=== PATIENT | male | born 1960 | race American Indian/Alaskan Native ===

== ENCOUNTER 2018-12-08 05:47 | Inpatient (IN) | payer OTHER ==
--- NOTE | 2018-12-08 05:50 | C.PDOC ---
History Of Present Illness Patient presents with worsening shortness of breath for over 3 days. 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 Received pt diaphoretic,sob, no chest pain. Speaking in 1-2 word responses. Strong scent of cigarettes on breath. No f/c/n/v Time Seen by Provider: 12/08/18 05:49 History Per: EMS History/Exam Limitations: clinical condition Onset/Duration Of Symptoms: Days (3) Current Symptoms Are (Timing): Worse Initiating Event: Other Exacerbating Factor(s): Laying Flat Current Respiratory Medications: See Home Med List Severity: Severe Pain Scale Rating Of: 9 Associated Symptoms: Sweating. denies: Fever, Chills Reports Recently: Treated By A Physician Recent travel outside of the [place]: No Additional History Per: EMS Past Medical History Reviewed: Historical Data, Nursing Documentation, Vital Signs Family History: States: No Known Family Hx Review Of Systems Constitutional: Negative for: Fever, Chills Eyes: Negative for: Redness ENT: Negative for: Throat Pain Cardiovascular: Negative for: Chest Pain Respiratory: Positive for: Shortness of Breath Gastrointestinal: Negative for: Nausea, Vomiting, Abdominal Pain Genitourinary: Negative for: Dysuria Musculoskeletal: Negative for: Back Pain Skin: Negative for: Rash Neurological: Negative for: Weakness Psych: Negative for: Anxiety Physical Exam - Physical Exam Appears: In Acute Distress Skin: Diaphoretic Head: Normacephalic Eye(s): bilateral: Normal Inspection Oral Mucosa: Moist Neck: Supple Chest: Symmetrical, Other (pacer/defib left chest wall) Cardiovascular: Rhythm Regular Respiratory: Decreased Breath Sounds, Rales (few at bases), Rhonchi, No Wheezing Gastrointestinal/Abdominal: Soft, No Tenderness, No Distention Back: No CVA Tenderness Extremity: Normal ROM Extremity: Bilateral: Atraumatic Pulses: Left Dorsalis Pedis: Normal, Right Dorsalis Pedis: Normal Neurological/Psych: Oriented x3 Gait: Unable To Assess ED Course And Treatment - Laboratory Results Result Diagrams: 12/08/18 06:09 12/08/18 06:09 ECG: Interpreted By Me, Viewed By Me ECG Rhythm: Sinus Rhythm (100), R BBB, Nonspecific Changes O2 Sat by Pulse Oximetry: 100 Pulse Ox Interpretation: Normal - Radiology CXR: Interpreted by Me, Viewed By Me CXR Interpretation: Yes: Cardiomegaly, Other (acute pulm edema, pacer left ch est). No: Infiltrates, Fracture Progress Note: 6:30 decreased o2 to 70%. still saturqting to 98% Critical Care Time - Critical Care Note Total Time (in mins): 30 Documented critical care: time excludes all time spent performing seperately billable procedures. Disposition Discussed With Dr.: David Nevarez Comment: accepted the pt on his service and took over the care at 6:45 AM Doctor Will See Patient In The: Hospital Counseled Patient/Family Regarding: Studies Performed, Diagnosis - Disposition Disposition: HOSPITALIZED Disposition Time: 05:50 Condition: CRITICAL - Clinical Impression Clinical Impression: Acute pulmonary edema, Respiratory distress Decision To Admit - Pt Status Changed To: Hospital Disposition Of: Inpatient - Admit Certification Admit to Inpatient:: After my assessment, the patient will require hospita lization for at least two midnights. This is because of the severity of symptoms shown, intensity of services needed, and/or the medical risk in this patient being treated as an outpatient. - InPatient: Physician Admission Certification: I certify that this patient requires 2 or more midnights of care for the following reason:: After my assessment, the patie nt will require hospitalization for at least two midnights. This is because of the severity of symptoms shown, intensity of services needed, and/or the medical risk in this patient being treated as an outpatient. - . Bed Request Type: Telemetry Admitting Physician: David Nevarez Patient Diagnosis: Acute pulmonary edema, Respiratory distress
[2018-12-08 05:56] VITALS: BMI 22.3
[2018-12-08] MEDS ORDERED: Nitroglycerin 2% Ointment Foilpak UD TOP STA (06:11)
[2018-12-08 06:12] LABS: BASO % 0.5 % (0.0-2.0); EOS # 0.4 K/uL (0.0-0.7); EOS % 6.2 % (0.0-4.0); HEMOGLOBIN 14.6 g/dL (12.0-18.0); LYMPH # 3.3 K/uL (1.0-4.3); LYMPH % 46.9 % (20.0-40.0); MEAN CELL VOLUME 98.3 fL (80.0-94.0); MEAN CORPUSCULAR HEMOGLOBIN 30.9 pg (27.0-31.0); MEAN CORPUSCULAR HGB CONC 31.4 g/dL (33.0-37.0); MEAN PLATELET VOLUME 10.5 fL (7.2-11.7); MONO # 0.4 K/uL (0.0-0.8); MONO % 5.1 % (0.0-10.0); NEUT # 2.9 K/uL (1.8-7.0); NEUT % 41.3 % (50.0-75.0); NRBC % 0.1 % (0.0-2.0); RBC 4.74 Mil/uL (4.40-5.90); RED CELL DISTRIBUTION WIDTH 15.3 % (11.5-14.5)
[2018-12-08 06:16] LABS: ABG ALLEN TEST POS; ARTERIAL BLOOD GAS HCO3 13.9 mmol/L (21-28); ARTERIAL BLOOD GAS O2 SAT 100.1 % (95-98); ARTERIAL BLOOD GAS PCO2 44 mm/Hg (35-45); ARTERIAL BLOOD GAS PH 7.13 (7.35-7.45); ARTERIAL BLOOD GAS PO2 188 mm/Hg (80-100)
[2018-12-08 06:21] LABS: INR 1.3; PROTHROMBIN TIME 13.8 SECONDS (9.7-12.2)
[2018-12-08] MEDS ORDERED: Nitroglycerin 2% Ointment Foilpak UD TOP ONE (06:24)
[2018-12-08 06:25] LABS: ALB/GLOB RATIO 1.3 (1.0-2.1); ALBUMIN 3.9 g/dL (3.5-5.0); BLOOD UREA NITROGEN 15 mg/dL (9-20); CALCIUM 8.8 mg/dl (8.6-10.4); GFR NON-AFRICAN AMERICAN 56
[2018-12-08 06:37] LABS: B-TYPE NATRIURETIC PEPTIDE 5240 pg/mL (0-900)
[2018-12-08 06:40] LABS: ALT/SGPT 56 U/L (21-72); AST/SGOT 64 U/L (17-59)
[2018-12-08 06:58] LABS: SQUAMOUS EPITHIAL < 1 /hpf (0-5); URINE BILIRUBIN NEGATIVE (NEGATIVE); URINE BLOOD NEGATIVE (NEGATIVE); URINE CLARITY Clear (Clear); URINE COLOR Straw (YELLOW); URINE GLUCOSE (UA) NORMAL (Normal); URINE LEUKOCYTE ESTERASE NEG Leu/uL (Negative); URINE PROTEIN 1+ mg/dL (NEGATIVE); URINE UROBILINOGEN NORMAL mg/dL (0.2-1.0)
[2018-12-08] MEDS ORDERED: Albuterol-Ipratrop 3 mg / 0.5 (3 ml) UD INH PRN (07:45)
--- NOTE | 2018-12-08 07:53 | CP.PCM.HP ---
History of Present Illness - History of Present Illness History of Present Illness: Chief complaint: Shortness of breath HPI: Patient is a 58-year-old male with a chronic history of heart failure, hypertension, hypercholesterolemia, CAD and stent placement multiple times in the past and also has AICD came to the emergency room with a sudden onset of shortness of breath. 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 Patient was given aspirin on his way, and he was also having diaphoretic associate with the shortness of breath. He did not have any chills. He denies any chest pain. He was not able to complete a sentence. In the emergency room patient was initially evaluated, placed on the BiPAP. Initial blood gas analysis showing evidence of severe acidotic secondary to possibly worsening respiratory distress. Patient was recently hospitalized 2 weeks ago at [facility] with a similar problem. 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 Past medical history: Hypertension, hypercholesterolemia, CAD, congestive heart failure Surgical history: AICD placement Allergies no known drug allergy Personal history: Patient is a known alcoholic. But he smokes almost half pack per day patient has a strong history of smoking in the past. He has a diet noncompliance. Family history significant for heart disease as well as hypertension. Review of system: He denies any headache denies any visual symptom No chest pain but complaining of cough shortness of breath. Severe worsening. Unable to breathe. Patient also feeling minimal cough. He denies any fever chills. No GI symptoms. No leg swelling On examination: Currently vital signs are stable. Blood pressure slightly on the low side. Oxygen saturation is 100%. Chest bilateral good air entry No wheezing or rales noted Patient has a pacemaker and AICD on the left side Abdomen soft nontender. No pedal edema Patient's labs reviewed Elevated proBNP, normal cardiac troponin level noted. Chest x-ray showing bilateral CHF pattern Assessment and recommendation: 58-year-old male now admitted to the hospital with a possible acute systolic heart failure decompensated. Improving with the BiPAP as well as Lasix. We will continue the current treatment. Continue the BiPAP. Oxygen as tolerated. Continue the Lasix. Cardiology evaluation. Evaluation by cardiac enzymes monitoring. DVT prophylaxis and will follow the patient Present on Admission - Present on Admission Any Indicators Present on Admission: No History of DVT/PE: No History of Uncontrolled Diabetes: No Urinary Catheter: No Decubitus Ulcer Present: No Past Patient History - Infectious Disease Hx of Infectious Diseases: None - Past Social History Smoking Status: Heavy Smoker > 10 Cigarettes Daily - CARDIAC Hx Congestive Heart Failure: Yes Hx Hypercholesterolemia: Yes Hx Hypertension: Yes - PSYCHIATRIC Hx Substance Use: No - SURGICAL HISTORY Hx Surgeries: Yes Other/Comment: AICD/Defibrillator - ANESTHESIA Hx Anesthesia: No Meds Allergies/Adverse Reactions: Allergies Allergy/AdvReac Type Severity Reaction Status Date / Time No Known Allergies Allergy Verified 12/08/18 05:55 Results - Vital Signs Recent Vital Signs: Last Vital Signs Temp 97.4 F L 12/08/18 06:04 Pulse 72 12/08/18 07:32 Resp 18 12/08/18 07:32 BP 104/77 12/08/18 07:32 Pulse Ox 100 12/08/18 07:32 - Labs Result Diagrams: 12/08/18 06:09 12/08/18 06:09 Labs: Laboratory Results - last 24 hr 12/08/18 12/08/18 12/08/18 05:55 06:09 06:09 WBC 7.0 RBC 4.74 Hgb 14.6 Hct 46.6 MCV 98.3 H MCH 30.9 MCHC 31.4 L RDW 15.3 H Plt Count 153 MPV 10.5 Neut % (Auto) 41.3 L Lymph % (Auto) 46.9 H Amelia % (Auto) 5.1 Eos % (Auto) 6.2 H Baso % (Auto) 0.5 Neut # (Auto) 2.9 Lymph # (Auto) 3.3 Amelia # (Auto) 0.4 Eos # (Auto) 0.4 Baso # (Auto) 0.0 PT 13.8 H INR 1.3 APTT 30 Puncture Site pCO2 pO2 HCO3 ABG pH ABG Total CO2 ABG O2 Saturation ABG Base Excess Juilen Test ABG Potassium A-a O2 Difference Respiratory Index Glucose Lactate Vent Mode FiO2 Inspiratory BiPAP Expiratory BiPAP Crit Value Called To Crit Value Called By Crit Value Read Back Blood Gas Notified Time Sodium Potassium Chloride Carbon Dioxide Anion Gap BUN Creatinine Est GFR ( Amer) Est GFR (Non-Af Amer) POC Glucose (mg/dL) 206 H Random Glucose Calcium Magnesium Total Bilirubin AST ALT Alkaline Phosphatase Troponin I NT-Pro-B Natriuret Pep Total Protein Albumin Globulin Albumin/Globulin Ratio Arterial Blood Potassium Urine Color Urine Clarity Urine pH Ur Specific [place] Urine Protein Urine Glucose (UA) Urine Ketones Urine Blood Urine Nitrate Urine Bilirubin Urine Urobilinogen Ur Leukocyte Esterase Urine WBC (Auto) Urine RBC (Auto) Ur Squamous Epith Cells Hyaline Casts 12/08/18 12/08/18 12/08/18 06:09 06:10 06:50 WBC RBC Hgb Hct MCV MCH MCHC RDW Plt Count MPV Neut % (Auto) Lymph % (Auto) [place] % (Auto) Eos % (Auto) Baso % (Auto) Neut # (Auto) Lymph # (Auto) [place] # (Auto) Eos # (Auto) Baso # (Auto) PT INR APTT Puncture Site Rr pCO2 44 pO2 188 H HCO3 13.9 L ABG pH 7.13 L* ABG Total CO2 16.0 L ABG O2 Saturation 100.1 H ABG Base Excess -14.2 L Julien Test Pos ABG Potassium 3.9 A-a O2 Difference 470.0 Respiratory Index 2.5 Glucose 231 H Lactate 6.3 H* Vent Mode Bipap FiO2 100.0 Inspiratory BiPAP 12 Expiratory BiPAP 6 Crit Value Called To Dr carvajal(erdr Crit Value Called By Dominguez ji/rt Crit Value Read Back Y Blood Gas Notified Time 620 Sodium 138 135.0 Potassium 4.5 Chloride 105 105.0 Carbon Dioxide 21 L Anion Gap 16 BUN 15 Creatinine 1.3 Est GFR ( Amer) > 60 Est GFR (Non-Af Amer) 56 POC Glucose (mg/dL) Random Glucose 181 H Calcium 8.8 Magnesium 2.2 Total Bilirubin 1.1 AST 64 H ALT 56 Alkaline Phosphatase 71 Troponin I < 0.0120 NT-Pro-B Natriuret Pep 5240 H Total Protein 6.9 Albumin 3.9 Globulin 3.0 Albumin/Globulin Ratio 1.3 Arterial Blood Potassium 3.9 Urine Color Straw Urine Clarity Clear Urine pH 5.0 Ur Specific [place] 1.005 Urine Protein 1+ H Urine Glucose (UA) Normal Urine Ketones Negative Urine Blood Negative Urine Nitrate Negative Urine Bilirubin Negative Urine Urobilinogen Normal Ur Leukocyte Esterase Neg Urine WBC (Auto) 1 Urine RBC (Auto) < 1 Ur Squamous Epith Cells < 1 Hyaline Casts 3-5 H
--- NOTE | 2018-12-08 07:55 | RAD ---
Date of service: 12/08/2018 PROCEDURE: CHEST RADIOGRAPH, 1 VIEW HISTORY: SOB COMPARISON: None available. FINDINGS: LUNGS: Pulmonary venous congestion suggested. The greater coalescence in the right mid lung zone. PLEURA: No pneumothorax or pleural fluid seen. CARDIOVASCULAR: There is presence of aortic atherosclerotic calcification on x-ray. Mild cardiomegaly. Left pacemaker battery pack multiple pacing leads present-correlate clinically OSSEOUS STRUCTURES: No significant abnormalities. VISUALIZED UPPER ABDOMEN: Normal. OTHER FINDINGS: None. IMPRESSION: Mild cardiomegaly and pulmonary venous congestion-pulmonary edema suggested Pacemaker with multiple leads in place. Correlate clinically
[2018-12-08 08:52] LABS: ABG ALLEN TEST PO; ARTERIAL BLOOD GAS HCO3 24.8 mmol/L (21-28); ARTERIAL BLOOD GAS O2 SAT 94.3 % (95-98); ARTERIAL BLOOD GAS PCO2 39 mm/Hg (35-45); ARTERIAL BLOOD GAS PH 7.41 (7.35-7.45); ARTERIAL BLOOD GAS PO2 60 mm/Hg (80-100); ARTERIAL BLOOD GAS TCO2 25.9 mmol/L (22-28)
[2018-12-08 12:10] LABS: CK-MB 0.87 ng/mL (0.0-3.38); TROPONIN I 0.021 ng/mL (0.00-0.120)
--- NOTE | 2018-12-08 14:41 | CP.PCM.CON ---
History of Present Illness - History of Present Illness History of Present Illness: The patient is a 58 yo man with history of CAD status post PCI of RCA in the remote past, nonischemic cardiomyopathy with EF of 20-25%, status post [place] single-chamber AICD implant in July of 2008 for primary prevention, lead fracture requiring capping of the old lead and implant of new defibrillator lead from right cephalic vein which was tunneled to the left side in August of 2014. Patient had frequent PVCs for which he underwent ablation in 2015. ICD generator was changed in February of 2017. Pt is followed by Karina Perez. he was recently admitted to [facility] obs unit with chf, treated and released. Pt has had compliance issues in the past, and has still smoked. Now readmitted for dyspnea, and cxr is c/w chf. The nurse called a reported an 11 beat run of VTach today Review of Systems - Review of Systems All systems: reviewed and no additional remarkable complaints except (as above.) Past Patient History - Infectious Disease Hx of Infectious Diseases: None - Past Medical History & Family History Past Medical History?: Yes - Past Social History Smoking Status: Current Some Days Smoker - CARDIAC Hx Congestive Heart Failure: Yes Hx Hypercholesterolemia: Yes Hx Hypertension: Yes - MUSCULOSKELETAL/RHEUMATOLOGICAL Hx Falls: No - PSYCHIATRIC Hx Substance Use: No - SURGICAL HISTORY Hx Surgeries: Yes Other/Comment: AICD/Defibrillator - ANESTHESIA Hx Anesthesia: No Meds Allergies/Adverse Reactions: Allergies Allergy/AdvReac Type Severity Reaction Status Date / Time No Known Allergies Allergy Verified 12/08/18 05:55 - Medications Medications: Current Medications Albuterol/Ipratropium (Duoneb 3 Mg/0.5 Mg (3 Ml) Ud) 3 ml INH RQ6 PRN PRN Reason: Shortness of Breath Aspirin (Aspirin Chewable) 81 mg PO DAILY [facility] Last Admin: 12/08/18 09:34 Dose: 81 mg Carvedilol (Coreg) 12.5 mg PO Q12 [facility] Last Admin: 12/08/18 09:34 Dose: 12.5 mg Famotidine (Pepcid) 20 mg PO DAILY [facility] Last Admin: 12/08/18 09:34 Dose: 20 mg Furosemide (Lasix) 20 mg IVP DAILY [facility] Last Admin: 12/08/18 09:34 Dose: 20 mg Heparin Sodium (Porcine) (Heparin) 5,000 units SC Q8 [facility] Last Admin: 12/08/18 13:10 Dose: Not Given Hydralazine HCl (Apresoline) 25 mg PO Q8 [facility] Last Admin: 12/08/18 13:10 Dose: 25 mg Rosuvastatin Calcium (Crestor) 5 mg PO HS [facility] Physical Exam - Constitutional Appears: Chronically Ill - Head Exam Head Exam: ATRAUMATIC - Eye Exam Eye Exam: EOMI Pupil Exam: NORMAL ACCOMODATION - ENT Exam ENT Exam: Mucous Membranes Moist - Neck Exam Neck exam: Positive for: Normal Inspection - Respiratory Exam Respiratory Exam: Clear to Auscultation Bilateral, NORMAL BREATHING PATTERN - Cardiovascular Exam Cardiovascular Exam: REGULAR RHYTHM - GI/Abdominal Exam GI & Abdominal Exam: Normal Bowel Sounds - Extremities Exam Extremities exam: Positive for: normal inspection - Back Exam Back exam: NORMAL INSPECTION - Neurological Exam Neurological exam: Alert, CN II-XII Intact - Psychiatric Exam Psychiatric exam: Normal Affect, Normal Mood - Skin Skin Exam: Dry, Warm Results - Vital Signs Recent Vital Signs: Last Vital Signs Temp 97.7 F 12/08/18 08:30 Pulse 72 12/08/18 08:30 Resp 20 12/08/18 08:30 BP 108/69 12/08/18 09:34 Pulse Ox 96 12/08/18 08:30 - Labs Result Diagrams: 12/08/18 06:09 12/08/18 06:09 Labs: Laboratory Results - last 24 hr 12/08/18 12/08/18 12/08/18 05:55 06:09 06:09 WBC 7.0 RBC 4.74 Hgb 14.6 Hct 46.6 MCV 98.3 H MCH 30.9 MCHC 31.4 L RDW 15.3 H Plt Count 153 MPV 10.5 Neut % (Auto) 41.3 L Lymph % (Auto) 46.9 H [place] % (Auto) 5.1 Eos % (Auto) 6.2 H Baso % (Auto) 0.5 Neut # (Auto) 2.9 Lymph # (Auto) 3.3 [place] # (Auto) 0.4 Eos # (Auto) 0.4 Baso # (Auto) 0.0 PT 13.8 H INR 1.3 APTT 30 Puncture Site pCO2 pO2 HCO3 ABG pH ABG Total CO2 ABG O2 Saturation ABG Base Excess Julien Test ABG Potassium A-a O2 Difference Respiratory Index Glucose Lactate Liter Flow Vent Mode FiO2 Inspiratory BiPAP Expiratory BiPAP Crit Value Called To Crit Value Called By Crit Value Read Back Blood Gas Notified Time Sodium Potassium Chloride Carbon Dioxide Anion Gap BUN Creatinine Est GFR ( Amer) Est GFR (Non-Af Amer) POC Glucose (mg/dL) 206 H Random Glucose Calcium Magnesium Total Bilirubin AST ALT Alkaline Phosphatase Total Creatine Kinase CK-MB (Mass) Troponin I NT-Pro-B Natriuret Pep Total Protein Albumin Globulin Albumin/Globulin Ratio Arterial Blood Potassium Urine Color Urine Clarity Urine pH Ur Specific [place] Urine Protein Urine Glucose (UA) Urine Ketones Urine Blood Urine Nitrate Urine Bilirubin Urine Urobilinogen Ur Leukocyte Esterase Urine WBC (Auto) Urine RBC (Auto) Ur Squamous Epith Cells Hyaline Casts 12/08/18 12/08/18 12/08/18 06:09 06:10 06:50 WBC RBC Hgb Hct MCV MCH MCHC RDW Plt Count MPV Neut % (Auto) Lymph % (Auto) [place] % (Auto) Eos % (Auto) Baso % (Auto) Neut # (Auto) Lymph # (Auto) [place] # (Auto) Eos # (Auto) Baso # (Auto) PT INR APTT Puncture Site Rr pCO2 44 pO2 188 H HCO3 13.9 L ABG pH 7.13 L* ABG Total CO2 16.0 L ABG O2 Saturation 100.1 H ABG Base Excess -14.2 L Julien Test Pos ABG Potassium 3.9 A-a O2 Difference 470.0 Respiratory Index 2.5 Glucose 231 H Lactate 6.3 H* Liter Flow Vent Mode Bipap FiO2 100.0 Inspiratory BiPAP 12 Expiratory BiPAP 6 Crit Value Called To Dr carvajal(erdr Crit Value Called By Dominguez ji/rt Crit Value Read Back Y Blood Gas Notified Time 620 Sodium 138 135.0 Potassium 4.5 Chloride 105 105.0 Carbon Dioxide 21 L Anion Gap 16 BUN 15 Creatinine 1.3 Est GFR ( Amer) > 60 Est GFR (Non-Af Amer) 56 POC Glucose (mg/dL) Random Glucose 181 H Calcium 8.8 Magnesium 2.2 Total Bilirubin 1.1 AST 64 H ALT 56 Alkaline Phosphatase 71 Total Creatine Kinase CK-MB (Mass) Troponin I < 0.0120 NT-Pro-B Natriuret Pep 5240 H Total Protein 6.9 Albumin 3.9 Globulin 3.0 Albumin/Globulin Ratio 1.3 Arterial Blood Potassium 3.9 Urine Color Straw Urine Clarity Clear Urine pH 5.0 Ur Specific [place] 1.005 Urine Protein 1+ H Urine Glucose (UA) Normal Urine Ketones Negative Urine Blood Negative Urine Nitrate Negative Urine Bilirubin Negative Urine Urobilinogen Normal Ur Leukocyte Esterase Neg Urine WBC (Auto) 1 Urine RBC (Auto) < 1 Ur Squamous Epith Cells < 1 Hyaline Casts 3-5 H 12/08/18 12/08/18 08:40 11:27 WBC RBC Hgb Hct MCV MCH MCHC RDW Plt Count MPV Neut % (Auto) Lymph % (Auto) [place] % (Auto) Eos % (Auto) Baso % (Auto) Neut # (Auto) Lymph # (Auto) [place] # (Auto) Eos # (Auto) Baso # (Auto) PT INR APTT Puncture Site Rra pCO2 39 pO2 60 L HCO3 24.8 ABG pH 7.41 ABG Total CO2 25.9 ABG O2 Saturation 94.3 L ABG Base Excess 0.1 Julien Test Po ABG Potassium 4.2 A-a O2 Difference 119.0 Respiratory Index 2.0 Glucose 85 Lactate 1.0 Liter Flow 3.0 Vent Mode FiO2 32.0 Inspiratory BiPAP Expiratory BiPAP Crit Value Called To Crit Value Called By Crit Value Read Back Blood Gas Notified Time Sodium 143.0 Potassium Chloride 111.0 H Carbon Dioxide Anion Gap BUN Creatinine Est GFR ( Amer) Est GFR (Non-Af Amer) POC Glucose (mg/dL) Random Glucose Calcium Magnesium Total Bilirubin AST ALT Alkaline Phosphatase Total Creatine Kinase 137 CK-MB (Mass) 0.87 Troponin I 0.0210 NT-Pro-B Natriuret Pep Total Protein Albumin Globulin Albumin/Globulin Ratio Arterial Blood Potassium 4.2 Urine Color Urine Clarity Urine pH Ur Specific [place] Urine Protein Urine Glucose (UA) Urine Ketones Urine Blood Urine Nitrate Urine Bilirubin Urine Urobilinogen Ur Leukocyte Esterase Urine WBC (Auto) Urine RBC (Auto) Ur Squamous Epith Cells Hyaline Casts - EKG Data EKG Interpreted by: Myself EKG shows normal: Sinus rhythm (rbbb, chronic st and t wave changes) Assessment & Plan - Assessment and Plan (Free Text) Assessment: 1. Dilated cardiomyopathy: pt needs aggressive dosing of meds. BP is not high. Stop hydralazine. Start entresto. (now approved for in hospital initiation). 2. Continue coreg and IV lasix for now. 3. aldactone. 4. Hydralazine can be re added if needed afterwards of if bp allows. 5. Non sustained VT: check mag levels: pt has ICD.
--- NOTE | 2018-12-08 18:39 | CARD ---
APPROVED REPORT Date of service: 12/08/2018 EXAM: Two-dimensional and M-mode echocardiogram with Doppler and color Doppler. Other Information Quality : GoodRhythm : INDICATION Cardiac Disease: CAD Congestive Heart Failure Surgery/Intervention ICD/Pacemaker: RISK FACTORS Hypertension Diabetes 2D DIMENSIONS IVSd0.7 (0.7-1.1cm)LVDd7.3 (3.9-5.9cm) PWd1.0 (0.7-1.1cm)LA Uubpps882 (18-58mL) LVDs6.1 (2.5-4.0cm)FS (%) 16.6 % LVEF (%)33.7 (>50%)LVEF (Carranza's)25 % M-Mode DIMENSIONS Left Atrium (MM)4.22 (2.5-4.0cm)IVSd0.77 (0.7-1.1cm) Aortic Root3.48 (2.2-3.7cm)LVDd6.81 (4.0-5.6cm) Aortic Cusp Exc.2.34 (1.5-2.0cm)PWd1.05 (0.7-1.1cm) FS (%) 17 %LVDs5.67 (2.0-3.8cm) LVEF (%)30 (>50%) Mitral Valve MV E Qhroxopv04.2cm/sMV A Pbzwnisw55.4cm/sE/A ratio2.6 IHYM411.86 cm/s TDI Lateral E' Peak V5.25cm/sMedial E' Peak V3.25cm/sE/Lateral E'17.9 E/Medial E'29.0 Tricuspid Valve TR Peak [id number]/sTR Peak Gr.[id number] LEFT VENTRICLE The left ventricle is severely dilated. There is normal left ventricular wall thickness. The left ventricular function is severely reduce, with diffuse hypokinesis. paradocial septal motion. The left ventricular ejection fraction is about 15% Transmitral Doppler flow pattern is Grade III-restrictive diastolic dysfunction. No left ventricle thrombus noted on this study. There is no ventricular septal defect visualized. There is no left ventricular aneurysm. RIGHT VENTRICLE The right ventricle is normal size. ICD wire noted. There is normal right ventricular wall thickness. The right ventricular systolic function is normal. ATRIA The left atrium is severely dilated. The right atrium size is normal. The interatrial septum is intact with no evidence for an atrial septal defect. AORTIC VALVE The aortic valve is normal in structure and function. No aortic regurgitation is present. There is no aortic valvular stenosis. There is no aortic valvular vegetation. MITRAL VALVE The mitral valve is normal in structure and function. There is no evidence of mitral valve prolapse. There is no mitral valve stenosis. There is moderate to severe eccentric laterally directed mitral valve regurgitation noted. TRICUSPID VALVE The tricuspid valve is normal in structure and function. There is mild tricuspid valve regurgitation noted.Systolic PA estiamtion is 41 mm Hg. There is no tricuspid valve prolapse or vegetation. There is no tricuspid valve stenosis. PULMONIC VALVE The pulmonary valve is normal in structure and function. There is mild pulmonic valvular regurgitation. There is no pulmonic valvular stenosis. GREAT VESSELS The aortic root is normal in size. The ascending aorta is normal in size. The pulmonary artery is normal. The IVC is normal in size and collapses >50% with inspiration. PERICARDIAL EFFUSION The pericardium appears normal. There is no pleural effusion. <Conclusion> Severe dilated cardiomyopathy The left ventricle is severely dilated. The left ventricular function is severely reduce, with diffuse hypokinesis. Paradoxical septal motion. The left ventricular ejection fraction is about 15% Transmitral Doppler flow pattern is Grade III-restrictive diastolic dysfunction. The left atrium is severely dilated. There is moderate to severe eccentric laterally directed mitral valve regurgitation noted.
[2018-12-08 20:06] LABS: CK-MB 0.85 ng/mL (0.0-3.38); TROPONIN I 0.02 ng/mL (0.00-0.120)
[2018-12-08] MEDS: Sacubitril/Valsartan 24-26mg Tab PO SCH (21:01)
[2018-12-09] MEDS: Sacubitril/Valsartan 24-26mg Tab PO SCH ×2 (09:56→17:49)
--- NOTE | 2018-12-09 11:08 | CP.PCM.PN ---
Subjective - Date & Time of Evaluation Date of Evaluation: 12/09/18 Time of Evaluation: 11:01 - Subjective Subjective: Pt feels better Objective - Vital Signs/Intake and Output Vital Signs (last 24 hours): Temp Pulse Resp BP Pulse Ox 97.4 F L 73 20 125/84 100 12/09/18 07:25 12/09/18 07:25 12/09/18 07:25 12/09/18 09:57 12/09/18 07:25 - Medications Medications: Current Medications Albuterol/Ipratropium (Duoneb 3 Mg/0.5 Mg (3 Ml) Ud) 3 ml INH RQ6 PRN PRN Reason: Shortness of Breath Aspirin (Aspirin Chewable) 81 mg PO DAILY [facility] Last Admin: 12/09/18 09:56 Dose: 81 mg Carvedilol (Coreg) 12.5 mg PO Q12 [facility] Last Admin: 12/09/18 09:56 Dose: 12.5 mg Famotidine (Pepcid) 20 mg PO DAILY [facility] Last Admin: 12/09/18 09:56 Dose: 20 mg Furosemide (Lasix) 20 mg IVP DAILY [facility] Last Admin: 12/09/18 09:57 Dose: 20 mg Heparin Sodium (Porcine) (Heparin) 5,000 units SC Q8 [facility] Last Admin: 12/09/18 05:57 Dose: Not Given Rosuvastatin Calcium (Crestor) 5 mg PO HS [facility] Last Admin: 12/08/18 22:56 Dose: 5 mg Sacubitril/Valsartan (Entresto 24 Mg-26 Mg) 1 tab PO BID [facility] Last Admin: 12/09/18 09:56 Dose: 1 tab Spironolactone (Aldactone) 25 mg PO DAILY [facility] Last Admin: 12/09/18 09:56 Dose: 25 mg - Labs Labs: 12/08/18 06:09 12/08/18 06:09 PT 13.8 SECONDS (9.7-12.2) H 12/08/18 06:09 INR 1.3 12/08/18 06:09 APTT 30 SECONDS (21-34) 12/08/18 06:09 - Constitutional Appears: Well, No Acute Distress - Head Exam Head Exam: ATRAUMATIC - Eye Exam Eye Exam: EOMI - ENT Exam ENT Exam: Mucous Membranes Moist - Neck Exam Neck Exam: Full ROM - Respiratory Exam Respiratory Exam: Decreased Breath Sounds - Cardiovascular Exam Cardiovascular Exam: REGULAR RHYTHM - GI/Abdominal Exam GI & Abdominal Exam: Normal Bowel Sounds - Extremities Exam Extremities Exam: Normal Inspection - Back Exam Back Exam: NORMAL INSPECTION - Neurological Exam Neurological Exam: Alert, Awake, Oriented x3 - Skin Skin Exam: Normal Color Assessment and Plan - Assessment and Plan (Free Text) Assessment: 1. Asymptomatic non sustained vtach noted, pt has icd, on a beta mynor and mag level normal. 2. Pt feels much better on current therapy. Now on entresto. Please write e ntresto Rx, pt can pick up attendant samples at the office, and we will send to [employer] a form for margarito entresto Rx. 3. Now on aldactone 4. Will stop iv lasix, , start po torsemide, preferred as outpatient daily 5. Outpatient daily weights. 5. Echo confirms severe cardiomyopathy 6. pt advised to stop smoking. He is stable for discharge.
[2018-12-09 17:35] VITALS: BP 113/74; PULSE 77; RESP 18; TEMP 97.5; O2SAT 95
--- NOTE | 2018-12-09 19:05 | CP.PCM.DIS ---
Provider - Provider Date of Admission: 12/08/18 06:44 Attending physician: David Nevarez MD Consults: 12/08/18 07:45 Cardiology Consult Routine Comment: Consulting Provider: Nahun Ridley Consulting Physician: Nahun Ridley Reason for Consult: [facility] - Lab Results Lab Results: Most Recent Lab Values WBC 7.0 K/uL (4.8-10.8) 12/08/18 06:09 RBC 4.74 Mil/uL (4.40-5.90) 12/08/18 06:09 Hgb 14.6 g/dL (12.0-18.0) 12/08/18 06:09 Hct 46.6 % (35.0-51.0) 12/08/18 06:09 MCV 98.3 fL (80.0-94.0) H 12/08/18 06:09 MCH 30.9 pg (27.0-31.0) 12/08/18 06:09 MCHC 31.4 g/dL (33.0-37.0) L 12/08/18 06:09 RDW 15.3 % (11.5-14.5) H 12/08/18 06:09 Plt Count 153 K/uL (130-400) 12/08/18 06:09 MPV 10.5 fL (7.2-11.7) 12/08/18 06:09 Neut % (Auto) 41.3 % (50.0-75.0) L 12/08/18 06:09 Lymph % (Auto) 46.9 % (20.0-40.0) H 12/08/18 06:09 Graves % (Auto) 5.1 % (0.0-10.0) 12/08/18 06:09 Eos % (Auto) 6.2 % (0.0-4.0) H 12/08/18 06:09 Baso % (Auto) 0.5 % (0.0-2.0) 12/08/18 06:09 Neut # (Auto) 2.9 K/uL (1.8-7.0) 12/08/18 06:09 Lymph # (Auto) 3.3 K/uL (1.0-4.3) 12/08/18 06:09 Graves # (Auto) 0.4 K/uL (0.0-0.8) 12/08/18 06:09 Eos # (Auto) 0.4 K/uL (0.0-0.7) 12/08/18 06:09 Baso # (Auto) 0.0 K/uL (0.0-0.2) 12/08/18 06:09 PT 13.8 SECONDS (9.7-12.2) H 12/08/18 06:09 INR 1.3 12/08/18 06:09 APTT 30 SECONDS (21-34) 12/08/18 06:09 Puncture Site Rra 12/08/18 08:40 pCO2 39 mm/Hg (35-45) 12/08/18 08:40 pO2 60 mm/Hg (80-100) L 12/08/18 08:40 HCO3 24.8 mmol/L (21-28) 12/08/18 08:40 ABG pH 7.41 (7.35-7.45) 12/08/18 08:40 ABG Total CO2 25.9 mmol/L (22-28) 12/08/18 08:40 ABG O2 Saturation 94.3 % (95-98) L 12/08/18 08:40 ABG Base Excess 0.1 mmol/L (-2.0-3.0) 12/08/18 08:40 Julien Test Po 12/08/18 08:40 ABG Potassium 4.2 mmol/L (3.6-5.2) 12/08/18 08:40 A-a O2 Difference 119.0 mm/Hg 12/08/18 08:40 Respiratory Index 2.0 12/08/18 08:40 Sodium 143.0 mmol/l (132-148) 12/08/18 08:40 Chloride 111.0 mmol/L (98-107) H 12/08/18 08:40 Glucose 85 mg/dl (75-110) 12/08/18 08:40 Lactate 1.0 mmol/L (0.7-2.1) 12/08/18 08:40 Liter Flow 3.0 12/08/18 08:40 Vent Mode Bipap 12/08/18 06:10 FiO2 32.0 % 12/08/18 08:40 Inspiratory BiPAP 12 12/08/18 06:10 Expiratory BiPAP 6 12/08/18 06:10 Crit Value Called To Dr carvajal(erdr 12/08/18 06:10 Crit Value Called By Dominguez ji/rt 12/08/18 06:10 Crit Value Read Back Y 12/08/18 06:10 Blood Gas Notified Time 620 12/08/18 06:10 Sodium 138 mmol/L (132-148) 12/08/18 06:09 Potassium 4.5 mmol/L (3.6-5.2) 12/08/18 06:09 Chloride 105 mmol/L (98-107) 12/08/18 06:09 Carbon Dioxide 21 mmol/L (22-30) L 12/08/18 06:09 Anion Gap 16 (10-20) 12/08/18 06:09 BUN 15 mg/dL (9-20) 12/08/18 06:09 Creatinine 1.3 mg/dL (0.8-1.5) 12/08/18 06:09 Est GFR ( Amer) > 60 12/08/18 06:09 Est GFR (Non-Af Amer) 56 12/08/18 06:09 POC Glucose (mg/dL) 206 mg/dL (65-110) H 12/08/18 05:55 Random Glucose 181 mg/dL (75-110) H 12/08/18 06:09 Calcium 8.8 mg/dl (8.6-10.4) 12/08/18 06:09 Magnesium 2.0 mg/dL (1.6-2.3) 12/09/18 06:27 Total Bilirubin 1.1 mg/dL (0.2-1.3) 12/08/18 06:09 AST 64 U/L (17-59) H 12/08/18 06:09 ALT 56 U/L (21-72) 12/08/18 06:09 Alkaline Phosphatase 71 U/L (38-126) 12/08/18 06:09 Total Creatine Kinase 119 U/L (55-170) 12/08/18 19:32 CK-MB (Mass) 0.85 ng/mL (0.0-3.38) 12/08/18 19:32 Troponin I 0.0200 ng/mL (0.00-0.120) 12/08/18 19:32 NT-Pro-B Natriuret Pep 5240 pg/mL (0-900) H 12/08/18 06:09 Total Protein 6.9 g/dL (6.3-8.3) 12/08/18 06:09 Albumin 3.9 g/dL (3.5-5.0) 12/08/18 06:09 Globulin 3.0 gm/dL (2.2-3.9) 12/08/18 06:09 Albumin/Globulin Ratio 1.3 (1.0-2.1) 12/08/18 06:09 Arterial Blood Potassium 4.2 mmol/L (3.6-5.2) 12/08/18 08:40 Urine Color Straw (YELLOW) 12/08/18 06:50 Urine Clarity Clear (Clear) 12/08/18 06:50 Urine pH 5.0 (5.0-8.0) 12/08/18 06:50 Ur Specific [place] 1.005 (1.003-1.030) 12/08/18 06:50 Urine Protein 1+ mg/dL (NEGATIVE) H 12/08/18 06:50 Urine Glucose (UA) Normal mg/dL (Normal) 12/08/18 06:50 Urine Ketones Negative mg/dL (NEGATIVE) 12/08/18 06:50 Urine Blood Negative (NEGATIVE) 12/08/18 06:50 Urine Nitrate Negative (NEGATIVE) 12/08/18 06:50 Urine Bilirubin Negative (NEGATIVE) 12/08/18 06:50 Urine Urobilinogen Normal mg/dL (0.2-1.0) 12/08/18 06:50 Ur Leukocyte Esterase Neg [place]/uL (Negative) 12/08/18 06:50 Urine WBC (Auto) 1 /hpf (0-5) 12/08/18 06:50 Urine RBC (Auto) < 1 /hpf (0-3) 12/08/18 06:50 Ur Squamous Epith Cells < 1 /hpf (0-5) 12/08/18 06:50 Hyaline Casts 3-5 /lpf (0-2) H 12/08/18 06:50 Discharge Exam - Head Exam Head Exam: ATRAUMATIC Discharge Plan - Follow Up Plan Condition: CRITICAL Disposition: HOME/ ROUTINE
--- NOTE | 2018-12-10 06:47 | CARD ---
APPROVED REPORT Date of service: 12/08/2018 EKG Measurement Heart [id number] <Conclusion> Sinus rhythm with fusion complexes Possible Left atrial enlargement Right bundle branch block Anteroseptal infarct, age undetermined T wave abnormality, consider inferior ischemia Abnormal ECG
--- NOTE | 2018-12-10 07:52 | PCM.HF ---
Heart Failure Core Measure - Heart Failure Ejection Fraction: Less Than 40 % MARIA ESTHER Inhibitor Prescribed: Yes Beta-Xiomara Prescribed: Carvedilol Angiotensin II Receptor Xiomara Prescribed: Yes AnticoagulationTherapy for Atrial Fibrillation/Atrialflutter: No Contraindication/Reason for not providing: no hx of a fib Aldosterone Antagonist Prescribed: Yes Hydralazine Nitrate Prescribed: No Contraindication/Reason for not providing: bp running low Implantable Cardioverter Defibrillator Therapy: No Contraindication/Reason for not providing: pt has AICD Cardiac Resynchronization Therapy Prescribed: No Contraindication/Reason for not providing: pt hs AICD - Follow up Will be discharged to: Home Follow Up Date (must be within 7 days from discharge): 12/14/18 Follow Up Time: 09:00
== END 2018-12-09 19:34 | disposition home or self-care (01) | DRG 138 ==
LOC: C.ER 05:47 → C.9E 06:44 → C.6T 07:32
PROVIDERS: ADMIT Internal Medicine; ATTEND Internal Medicine
DX: I47.2 Ventricular tachycardia (principal); I42.0 Dilated cardiomyopathy; I50.9 Heart failure, unspecified; I11.0 Hypertensive heart disease with heart failure; E87.2 Acidosis; I50.1 Left ventricular failure, unspecified; Z91.11 Patient's noncompliance with dietary regimen; I25.10 Atherosclerotic heart disease of native coronary artery without angina pectoris; Z95.5 Presence of coronary angioplasty implant and graft; Z95.810 Presence of automatic (implantable) cardiac defibrillator; F17.200 Nicotine dependence, unspecified, uncomplicated